=== PATIENT | female | born 1990 | race Hispanic/Latino ===

== ENCOUNTER 2023-07-13 22:58 | Emergency (ER) | payer OTHER ==
[~2023-07-13] VITALS: Ht 121.9 cm; Wt 90.9 kg
[2023-07-13] MEDS ORDERED: MORPHINE SULFATE 4 MG/ML VIAL IV ONE (23:00)
[2023-07-13 23:39] LABS: BASOPHILS 0.6 % (0-2); EOSINOPHILS 1.2 % (0-6); HEMATOCRIT 36.3 % (35.0-50.0); HEMOGLOBIN 12.3 g/dL (12.0-18.0); LYMPHOCYTES 29.2 % (24-44); MCH 28.7 (27-36); MCHC 33.7 g/dl (30-36); MCV 85.2 fl (81-99); MONOCYTES 5.3 % (0-12); NEUTROPHILS 63.7 % (39-80); PLATELET COUNT 305 K/uL (140-440); RBC 4.27 M/ul (4.3-5.7); RDW 13.9 (10.5-15.0)
[2023-07-13 23:55] LABS: ALBUMIN 3.7 g/dL (3.4-5.0); ALBUMIN/GLOBULIN RATIO 0.86 (1.1-2.4); ANION GAP 11.9 (7-21); BILIRUBIN, TOTAL 0.2 ng/dL (0.2-1.0); BUN/CREATININE RATIO 16.66 (6.0-28.6); CALCIUM 8.6 mg/dL (8.5-10.1); CREATININE, SERUM 0.78 mg/dL (0.55-1.02); POTASSIUM 3.9 mmol/L (3.5-5.1)
[2023-07-14 00:18] VITALS: BP 110/72
== END 2023-07-14 00:19 | disposition home or self-care (01) ==
LOC: ED 22:58
PROVIDERS: Family Medicine
DX: N92.0 Excessive and frequent menstruation with regular cycle (principal)
CPT/HCPCS: 36415; 80053; 84703; 85025; 99284

== ENCOUNTER 2024-03-12 10:59 | Emergency (ER) | payer OTHER ==
[~2024-03-12] VITALS: Ht 154.9 cm; Wt 101.2 kg
[2024-03-12 11:30] VITALS: BP 119/82
== END 2024-03-12 11:30 | disposition home or self-care (01) ==
LOC: ED 10:59
DX: M25.532 Pain in left wrist (principal); R22.32 Localized swelling, mass and lump, left upper limb
CPT/HCPCS: 99282